=== PATIENT | male | born 1985 | race Caucasian/White ===

== ENCOUNTER 2018-01-22 19:11 | Emergency (ER) | payer SELFPAY ==
[~2018-01-22] VITALS: Ht 175.3 cm; Wt 109.1 kg
[2018-01-22 19:46] VITALS: BP 118/85; Ht 175.3 cm; Wt 109.1 kg
[2018-01-22 20:37] LABS: BASOPHILS 0.3 % (0-2); HEMATOCRIT 45.9 % (42.0-54.0); HEMOGLOBIN 15.5 g/dL (13.5-17.5); IMMATURE GRANULOCYTES 0.2 % (0-5); LYMPHOCYTES 35.3 % (15-50); MCHC 33.8 g/dL (31.0-37.0); MONOCYTES 8.5 % (2-11); NEUTROPHILS 52.7 % (40-80); PLATELET COUNT 302 10x3/uL (130-400); RBC 5.16 10x6/uL (4.20-6.10); WBC 9.2 10x3/uL (4.8-10.8)
[2018-01-22 20:50] LABS: ALKALINE PHOSPHATASE 105 U/L (46-116); ALT (SGPT) 62 U/L (10-68); BILIRUBIN - TOTAL 0.22 mg/dL (0.2-1.3); C-REACTIVE PROTEIN 0.7 mg/dL (0.0-0.9); CALC OSMOLALITY 285 mosm/kg (275-300); CALCIUM 9.4 mg/dL (8.5-10.1); CARBON DIOXIDE 25.9 mmol/L (21.0-32.0); CHLORIDE - SERUM 106 mmol/L (98-107); GLUCOSE 94 mg/dL (74-106); POTASSIUM - SERUM 4.2 mmol/L (3.5-5.1); PROTEIN - SERUM 7.4 g/dL (6.4-8.2); SODIUM 143 mmol/L (136-145); UREA NITROGEN 14 mg/dL (7-18); eGFR NON AFRICAN AMERICAN > 90 mL/min (90-120)
[2018-01-22] MEDS ORDERED: VIBRAMYCIN 100100 MG PO (21:09)
[2018-01-28 13:17] LABS: RMSF IGM 0.26 index (0.00-0.89)
== END 2018-01-22 21:19 | disposition home or self-care (01) ==
LOC: D.ER 19:11
PROVIDERS: Family Medicine
DX: S30.860A Insect bite (nonvenomous) of lower back and pelvis, initial encounter (principal); W57.XXXA Bitten or stung by nonvenomous insect and other nonvenomous arthropods, initial encounter; Y93.89 Activity, other specified; Y92.019 Unspecified place in single-family (private) house as the place of occurrence of the external cause; M25.50 Pain in unspecified joint; R68.83 Chills (without fever)